=== PATIENT | female | born 1950 | race Caucasian/White ===

== ENCOUNTER 2019-04-24 11:23 | Emergency (ER) | payer MEDICARE, OTHER ==
[2019-04-24 11:55] VITALS: BP 164/80
[2019-04-24 12:09] LABS: APPEARANCE,URINE CLEAR (CLEAR); COLOR,URINE YELLOW (YELLOW); OCCULT BLOOD,URINE NEGATIVE (NEGATIVE); UROBILINOGEN URINE 0.2 Eu (0.2-1.0)
--- NOTE | 2019-04-24 12:11 | ED Physician Documentation ---
Abdominal Pain - HISTORIAN Historian: patient - HPI Stated Complaint: abdominal pain Chief Complaint: Abdominal Pain Additonal Information: Patient presents to the ED with sudden onset of RUQ pain with associated nausea, lasting approximately 20 minutes and resolving without intervention. She is pain free now. Patient states approximately 1.5 years ago she had colonoscopy with 15 polyps removed. S/p Mirta Greene. Onset: minutes (30) Duration: sudden-onset Timing: gone now Context: denies: out of country travel, bad food Severity: mild Quality: sharp, stabbing Associated Symptoms: nausea. denies: fever Exacerbated by: nothing Relieved by: nothing - ROS CONST: no problems GI/: none CVS/RESP: none EYES/ENT: none MS/SKIN/LYMPH: none NEURO/PSYCH: none - SOCIAL HX Smoking History: non-smoker Alcohol Use: none Drug Use: none - FAMILY HX Family History: none - PAST HX Past History: none Ischemic Bowel Risk Factors: none Other History: none Surgeries/Procedures: none Home Medications: Ambulatory Orders Medication Instructions Recorded Unobtainable 04/24/19 Allergies/Adverse Reactions: Allergies Allergy/AdvReac Type Severity Reaction Status Date / Time codeine Allergy Verified 04/24/19 11:48 - VITAL SIGNS Vital Signs: Vital Signs Temp Pulse Resp BP Pulse Ox 98.2 F 67 20 164/80 94 04/24/19 11:25 04/24/19 11:25 04/24/19 11:25 04/24/19 11:25 04/24/19 11:25 - REVIEWED ASSESSMENTS Nursing Assessment Reviewed: Yes Vitals Reviewed: Yes ED Results Lab/Radiology - Lab Results Lab Results: Lab Results 04/24/19 04/24/19 04/24/19 11:55 11:55 11:55 WBC 5.60 K/ul K/ul (4.00-12.00) RBC 4.46 M/ul M/ul (3.90-5.20) Hgb 14.7 g/dL g/dL (11.5-16.0) Hct 42.5 % % (34.5-46.5) MCV 95.0 fl fl (80.0-100.0) MCH 32.9 pg pg (28.0-34.0) MCHC 34.5 g/dL g/dL (30.0-36.0) RDW 11.1 % L % (11.3-14.3) Plt Count 410 K/mm3 H K/mm3 (130-400) Neut % (Auto) 59.6 % % (39.0-79.0) Lymph % (Auto) 32.5 % % (16.0-50.0) [place] % (Auto) 4.2 % % (0.0-11.0) Eos % (Auto) 3.1 % % (0.0-6.8) Baso % (Auto) 0.6 % % (0.0-1.5) Neut # (Auto) 3.3 # k/uL # k/uL (1.4-7.7) Lymph # (Auto) 1.8 # k/uL # k/uL (0.6-4.0) [place] # (Auto) 0.2 # k/uL # k/uL (0.0-0.9) Eos # (Auto) 0.2 # k/uL # k/uL (0.0-0.6) Baso # (Auto) 0.0 # k/uL # k/uL (0.0-0.5) Sodium 142 mmol/L mmol/L (137-145) Potassium 4.1 mmol/L mmol/L (3.5-5.1) Chloride 102 mmol/L mmol/L (98-107) Carbon Dioxide 30 mmol/L mmol/L (22-30) Anion Gap 14.1 BUN 5 mg/dL L mg/dL (7-17) Creatinine 0.59 mg/dL mg/dL (0.52-1.04) Estimated Creat Clear 98 Est GFR ( Amer) > 60 (60 - ) Est GFR (Non-Af Amer) > 60 (60 - ) Glucose 108 mg/dL H mg/dL (74-106) Calcium 10.2 mg/dL mg/dL (8.4-10.2) Total Bilirubin 0.4 mg/dL mg/dL (0.2-1.3) AST 37 U/L U/L (15-46) ALT 16 U/L U/L (4-35) Alkaline Phosphatase 68 U/L U/L (38-126) Total Protein 8.5 g/dL H g/dL (6.3-8.2) Albumin 5.1 g/dL H g/dL (3.5-5.0) Urine Color Yellow (YELLOW) Urine Appearance Clear (CLEAR) Urine pH 7.0 (5.0 - 8.0) Ur Specific [place] 1.020 (1.010-1.030) Urine Protein Negative mg/dL mg/dL (NEGATIVE) Urine Ketones Negative mg/dL mg/dL (NEGATIVE) Urine Occult Blood Negative (NEGATIVE) Urine Nitrite Negative (NEGATIVE) Urine Bilirubin Negative (NEGATIVE) Urine Urobilinogen 0.2 Eu Eu (0.2-1.0) Ur Leukocyte Esterase Negative (NEGATIVE) Urine Glucose Negative mg/dL mg/dL (NEGATIVE) - Radiology Radiology Impressions: Report Submission Date: Apr 24, 2019 12:21:09 PM BAR HOSTESS Patient Study Name: MARILIN ADRIAN Date: Apr 24, 2019 11:56:28 AM BAR HOST[facility] Modality Type: CT\SR Gender: F Description: CT ABD PELVIS W/O CO : 50 Institution: [facility] Physician: SAHIL SANCHEZ CT abdomen and pelvis without contrast History: PATIENT STATES RUQ PAIN X TODAY; PAIN STARTED ON LUQ X 2 WEEKS AGO BUT INCREASED IN INTENSITY AND CHANGED SIDES TODAY; HX OF APPENDECTOMY AND CHOLESYSECTOMY Technique: Transaxial computed tomographic images of the abdomen pelvis were obtained without contrast according to standard protocol. Findings: The lung bases are clear. The heart size is normal. The liver is normal. The gallbladder is absent. The pancreas, spleen, and adrenal glands are normal. There is left simple renal cyst in the posterior cortex measuring 1.6 cm present. There is no hydronephrosis or hydroureter. No bowel wall thickening or dilation is present. The appendix is absent. Atherosclerosis is present of the aorta. There is no adenopathy present. The bladder and uterus are normal. There is no free fluid present. There is mild degenerative change in the lumbar spine. Impression: 1. Status post appendectomy and cholecystectomy. 2. Mild atherosclerosis. 3. Lumbar spondylosis. Electronically signed on Apr 24, 2019 12:21:09 PM BAR HOSTESS by: Randall Troncoso - Orders Orders: ED Orders Category Date Time Status CT ABD & PELVIS W/O CON Stat Exams 04/24/19 Completed CBC/PLATELET/DIFF Routine Lab 04/24/19 11:55 Completed CMP [CMP] Routine Lab 04/24/19 11:55 Completed UA W/MICRO IF INDICATED Routine Lab 04/24/19 11:55 Completed Abdominal Pain Physical Exam - Physical Exam General Appearance: no acute distress, alert EENT: THIEN NECK: supple RESPIRATORY: no resp distress CVS: reg rate & rhythm ABDOMEN: soft, normal bowel sounds, non-tender BACK: normal inspection, no CVA tenderness SKIN: warm/dry EXTREMITIES: non-tender, no edema NEURO: oriented X3, mood/affect nml Vital Signs: Vital Signs Temp Pulse Resp BP Pulse Ox 98.2 F 67 20 164/80 94 04/24/19 11:25 04/24/19 11:25 04/24/19 11:25 04/24/19 11:25 04/24/19 11:25 Discharge Clincal Impression: Abdominal gas pain Referrals: Primary Doctor,No [Primary Care Provider] - 2 Days Additional Instructions: 1. Gas X as needed may be beneficial 2. Drink plenty of water to maintain proper hydration 3. Walking daily for at least 20 minutes helps with gut motility 4. Follow up with PCP within 1 week 5. Return to ER for new or worsen symptoms Condition: Stable Disposition: 01 HOME, SELF-CARE Decision to Admit: NO Date of Decison to Admit: 04/24/19 Decision Time: 12:31
[2019-04-24 12:14] LABS: BASOPHILS % 0.6 % (0.0-1.5); NEUTROPHILS # 3.3 # k/uL (1.4-7.7)
[2019-04-24 12:23] LABS: eGFR (Non-African) > 60
--- NOTE | 2019-04-24 12:26 | Diagnostic Imaging Report ---
PATIENT MR#: [id number] PATIENT PATIENT NAME: MARILIN ADRIAN DATE OF : 1950 REFERRING PHYSICIAN: Rhonda Rojas EXAM DATE: 04/24/2019 ACCESSION NUMBER: [id number] EXAM DESCRIPTION: CT ABD PELVIS W/O CO CT abdomen and pelvis without contrast History: PATIENT STATES RUQ PAIN X TODAY; PAIN STARTED ON LUQ X 2 WEEKS AGO BUT INCREASED IN INTENSIT Y AND CHANGED SIDES TODAY; HX OF APPENDECTOMY AND CHOLESYSECTOMY Technique: Transaxial computed tomographic images of the abdomen pelvis were obtained without contra st according to standard protocol. Findings: The lung bases are clear. The heart size is normal. The liver is normal. The gallbladder is absent. The pancreas, spleen, and adrenal glands are normal . There is left simple renal cyst in the posterior cortex measuring 1.6 cm present. There is no hydronephrosis or hy droureter. No bowel wall thickening or dilation is present. The appendix is absent. Atherosclerosis is present of the aorta. There is no adenopathy present. The bladder and uterus are normal. There is no free fluid present. There is mild degenerative mann e in the lumbar spine. Impression: 1. Status post appendectomy and cholecystectomy. 2. Mild atherosclerosis. 3. Lumbar spondylosis. Read by: Dr. Randall Troncoso Transcribed by: Transcribed Date: Electronically signed by: Dr. Randall Troncoso Date signed: 04/24/2019 12:26:02 PM
== END 2019-04-24 12:36 | disposition home or self-care (01) ==
LOC: ED 11:23
DX: R14.1 Gas pain (principal)
CPT/HCPCS: 74176; 80053; 81002; 85025